=== PATIENT | female | born 1990 | race Caucasian/White ===

== ENCOUNTER 2017-02-19 16:56 | Emergency (ER) | payer OTHER ==
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
--- NOTE | 2017-02-19 20:22 | XRay Report ---
FINAL REPORT PROCEDURE: XR KNEE 1-2V RT TECHNIQUE: RIGHT knee radiographs, AP, lateral and sunrise views. CPT 50106 HISTORY: right knee pain COMPARISON: No prior studies are available for comparison. FINDINGS: Fracture (s) and/or Dislocation(s): None . Alignment: Normal . Joint space(s): Normal . Soft tissues: Normal . Bone mineralization: Normal . Foreign bodies: None . IMPRESSION: Normal Examination.
[2017-02-19 20:52] VITALS: BP 119/75
== END 2017-02-19 21:21 | disposition home or self-care (01) ==
LOC: ED 16:56
DX: S86.911A Strain of unspecified muscle(s) and tendon(s) at lower leg level, right leg, initial encounter (principal); S60.221A Contusion of right hand, initial encounter; V49.49XA Driver injured in collision with other motor vehicles in traffic accident, initial encounter; Y93.89 Activity, other specified; Y92.89 Other specified places as the place of occurrence of the external cause; Y99.8 Other external cause status

== ENCOUNTER 2020-03-05 08:14 | Outpatient (CLI) | payer SELFPAY ==
--- NOTE | 2020-03-05 10:28 | Ultrasound Report ---
LIMITED RUQ ABDOMINAL ULTRASOUND INDICATION: ABDOMINAL PAIN, DIZZINESS, COUGH, NAUSEA WITH VOMITING. COMPARISON: No relevant prior imaging study available. FINDINGS: Pancreas: Visualized portions show no significant abnormality. Abdominal Aorta: No significant abnormality. IVC: No significant abnormality. Liver: The liver measures 16 cm in length. No significant abnormality. Normal hepatopedal blood flow in the main portal vein. Gallbladder: No significant abnormality. Bile ducts: No significant abnormality. Common bile duct measures 2 mm. Right kidney: No significant abnormality visualized.. Free fluid: None. Additional Findings: None. IMPRESSION: 1. Normal exam. Signer Name: Rolan Willis MD Signed: 03/05/2020 10:24 AM Workstation Name: [email or web address]
== END 2020-03-05 08:15 | disposition home or self-care (01) ==
LOC: US 08:14
PROVIDERS: ATTEND Nurse Practitioner Family
DX: R05 Cough (principal); R11.2 Nausea with vomiting, unspecified; R50.9 Fever, unspecified; R42 Dizziness and giddiness
CPT/HCPCS: 76705